=== PATIENT | male | born 1995 | race Two or more races ===

== ENCOUNTER 2023-04-03 18:27 | Emergency (ER) | payer SELFPAY ==
[~2023-04-03] VITALS: Ht 175.3 cm; Wt 82.0 kg
[2023-04-03] MEDS ORDERED: METHYLPREDNISOLONE SOD SUCC 125MG/2ML (ACT-O-VIAL) IM STA (19:32)
[2023-04-03] MEDS ORDERED: METHYLPREDNISOLONE SOD SUCC 125MG VIAL IM NR (19:45)
[2023-04-03] MEDS ORDERED: ALBUTEROL (0.083%) 2.5MG/3ML NEB HHN ONE (19:45)
[2023-04-03 20:21] VITALS: PULSE 126; RESP 20; O2SAT 95
[2023-04-03] MEDS ORDERED: IPRATROPIUM/ALBUTEROL 0.5-3(2.5)MG/3ML NEB HHN ONE (21:00)
[2023-04-03 21:36] VITALS: PULSE 129; RESP 20; O2SAT 99
[2023-04-03] MEDS ORDERED: MAGNESIUM 2 G PREMIX 50 ML IV ONE (22:00)
[2023-04-03] MEDS ORDERED: P50 MT (22:14)
[2023-04-03] MEDS ORDERED: ALBU05 NEB (22:14)
[2023-04-03 23:05] VITALS: BP 125/77; PULSE 106; RESP 20; TEMP 99
== END 2023-04-03 23:05 | disposition home or self-care (01) ==
LOC: ER 18:27
DX: J45.901 Unspecified asthma with (acute) exacerbation (principal); Z98.890 Other specified postprocedural states
CPT/HCPCS: 71045; 94640; 96372; 99283; J2930; Z7610 ×5